=== PATIENT | female | born 1980 | race Two or more races ===

== ENCOUNTER 2019-06-14 11:03 | Outpatient (CLI) | payer OTHER | END 2019-06-14 11:09 | disposition home or self-care (01) | LOC: SONOGRAMA 11:03 | DX: R10.84 Generalized abdominal pain (principal); R12 Heartburn ==

== ENCOUNTER → 2019-06-14 | Outpatient (CLI) | payer OTHER ==
[~2019-06-14] MED LIST: AVAPRO150 MG; KETO10TA2 PO; ORPHENADRINE C100 MG PO
== END | disposition home or self-care (01) ==
LOC: LAB SALUS 07:23
DX: Z13.220 Encounter for screening for lipoid disorders (principal); Z11.59 Encounter for screening for other viral diseases; Z13.1 Encounter for screening for diabetes mellitus; Z11.4 Encounter for screening for human immunodeficiency virus [HIV]; Z72.51 High risk heterosexual behavior; Z11.3 Encounter for screening for infections with a predominantly sexual mode of transmission; Z12.11 Encounter for screening for malignant neoplasm of colon

== ENCOUNTER 2019-06-18 13:23 | Emergency (ER) | payer OTHER ==
[~2019-06-18] VITALS: Ht 152.4 cm; Wt 131.1 kg
[2019-06-18] MEDS ORDERED: AVAPRO150 MG (14:02)
[2019-06-18] MEDS ORDERED: KETO10TA2 PO (15:51)
[2019-06-18] MEDS ORDERED: ORPHENADRINE C100 MG PO (15:51)
== END 2019-06-18 15:50 | disposition home or self-care (01) ==
LOC: ER 13:23
DX: M62.838 Other muscle spasm (principal)

== ENCOUNTER 2019-10-09 06:43 | Emergency (ER) | payer OTHER ==
[~2019-10-09] VITALS: Ht 154.9 cm; Wt 130.6 kg
[2019-10-09] MEDS ORDERED: COZAAR50 MG (07:07)
[2019-10-09] MEDS ORDERED: IRBESARTAN-HCT1 EACH (07:08)
[2019-10-09] MEDS ORDERED: FORTAMET500 MG (07:08)
== END 2019-10-09 12:28 | disposition home or self-care (01) ==
LOC: ER 06:43
DX: J45.909 Unspecified asthma, uncomplicated (principal)